=== PATIENT | male | born 1990 | race Caucasian/White ===

== ENCOUNTER 2017-01-31 21:01 | Emergency (ER) | payer MEDICARE, MEDICAID ==
[~2017-01-31] VITALS: Ht 180.3 cm; Wt 93.2 kg
[2017-01-31 21:07] VITALS: BP 151/99
== END 2017-01-31 21:33 | disposition home or self-care (01) ==
LOC: ED 21:30
DX: K02.9 Dental caries, unspecified (principal)
CPT/HCPCS: 99283

== ENCOUNTER 2017-11-08 12:16 | Emergency (ER) | payer MEDICARE, MEDICAID ==
[~2017-11-08] VITALS: Ht 182.9 cm; Wt 97.0 kg
[2017-11-08] MEDS ORDERED: LORazepam 2 MG/ML, 1ML ONE (13:58)
[2017-11-08] MEDS ORDERED: LORazepam 2 MG/ML, 1ML IM ONE (14:00)
[2017-11-08 14:41] LABS: CULTURE INDICATED? YES; MICROSCOPIC INDICATED
[2017-11-08 16:20] VITALS: BP 136/85
== END 2017-11-08 16:22 | disposition home or self-care (01) ==
LOC: ED 14:46
DX: N30.90 Cystitis, unspecified without hematuria (principal); R33.9 Retention of urine, unspecified
CPT/HCPCS: 51702; 81001; 87086; 99284

== ENCOUNTER 2018-12-03 19:57 | Emergency (ER) | payer MEDICARE, MEDICAID ==
[~2018-12-03] VITALS: Ht 180.3 cm; Wt 106.0 kg
[2018-12-03 20:06] VITALS: BP 138/94
== END 2018-12-03 21:12 | disposition home or self-care (01) ==
LOC: ED 21:11
DX: K02.9 Dental caries, unspecified (principal); K04.7 Periapical abscess without sinus
CPT/HCPCS: 99283

== ENCOUNTER 2020-10-25 09:24 | Emergency (ER) | payer MEDICARE, MEDICAID ==
[~2020-10-25] VITALS: Ht 180.3 cm; Wt 110.3 kg
[~2020-10-25 09:24] MED LIST: ACET325C6 PO; METH10TA3 PO
[2020-10-25 09:29] VITALS: BP 150/93
--- NOTE | 2020-10-25 09:41 | NUR ---
PATIENT WALKED BACK FROM [facility] WITH CHIEF C/O REFILL ON METHADONE. PER PATIENT HE MISSED HIS APPT MONDAY AT [facility] AND COULD NOT GET A REFILL ON HIS METHADONE. CLINIC IS NOT OPEN DUE TO HOLIDAY, PATIENT NEEDS REFILL ON METHADONE.
--- NOTE | 2020-10-25 10:29 | NUR ---
METHADONE REQUESTED FROM PHARMACY.
[2020-10-25] MEDS ORDERED: METHADONE 40 MG TABLET.SOL PO ONE (10:30)
--- NOTE | 2020-10-25 10:32 | NUR ---
ERPA AT BEDSIDE TO DISCUSS POC.
--- NOTE | 2020-10-25 10:54 | NUR ---
MEDICATION RETRIEVED FROM PHARMACY AND NARCOTIC SHEET FILLED OUT. Patient medicated per eMAR. Patient given discharge instructions and they have confirmed that they understand the instructions. Patient ambulatory with steady gait. NAD, all questions answered appropriately, denies additional needs at this time. No personal belongings left in room after discharge.
== END 2020-10-25 11:03 | disposition home or self-care (01) ==
LOC: ED 10:42
DX: F11.13 Opioid abuse with withdrawal (principal); Z76.0 Encounter for issue of repeat prescription; M19.90 Unspecified osteoarthritis, unspecified site
CPT/HCPCS: 99283

== ENCOUNTER 2020-10-26 08:52 | Emergency (ER) | payer MEDICARE, MEDICAID ==
[~2020-10-26] VITALS: Ht 180.3 cm; Wt 111.6 kg
--- NOTE | 2020-10-26 09:00 | NUR ---
Pt ambulatory to room from triage without gait disturbance.
--- NOTE | 2020-10-26 09:03 | NUR ---
PA in to see pt for assessment.
--- NOTE | 2020-10-26 09:17 | NUR ---
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
[2020-10-26] MEDS ORDERED: METHADONE 40 MG TABLET.SOL PO PRN (09:30)
--- NOTE | 2020-10-26 09:31 | NUR ---
D/C paperwork at bedside. Pharmacy request for Methadone sent now. Awaiting delivery of medication then pt will be d/c'd. Pt aware of delay.
[2020-10-26 10:14] VITALS: BP 132/79
== END 2020-10-26 10:16 | disposition home or self-care (01) ==
LOC: ED 08:56
DX: F11.20 Opioid dependence, uncomplicated (principal); Z76.0 Encounter for issue of repeat prescription
CPT/HCPCS: 99283